=== PATIENT | male | born 1990 | race Caucasian/White ===

== ENCOUNTER 2019-02-18 01:58 | Observation (INO) ==
[2019-02-18] MEDS ORDERED: Ketorolac 15 MG/ML VIAL IVP ONE (02:33)
[2019-02-18] MEDS ORDERED: Ondansetron 4 MG/2 ML VIAL IVP ONE ×3 (02:33→16:29)
[2019-02-18] MEDS ORDERED: 0.9 % Sodium Chloride 1,000 ML IVC ONE ×3 (02:33→08:17)
[2019-02-18 03:04] LABS: Basophils # 0.1 K/mcL (0.0-0.2); Basophils % 0.3 %; Eosinophils % 0.1 %; Hematocrit 41.6 % (37.5-50.1); Immature Granulocytes % 0.6 % (0-4); Lymphocytes # 1.6 K/mcL (0.6-4.6); Lymphocytes % 10.4 %; Mean Corpuscular HGB Conc 33.7 g/dL (31.6-35.5); Mean Corpuscular Hemoglobin 30.4 pg (28.0-33.3); Mean Corpuscular Volume 90.4 fL (83.0-100.0); Mean Platelet Volume 11.1 fL (9.4-12.4); Monocytes # 0.7 K/mcL (0.0-1.3); Monocytes % 4.2 %; Neutrophils # 13.2 K/mcL (1.6-8.9); Platelet Count 290 K/mcL (140-400); Red Cell Distribution Width 12.2 % (11.5-14.5); Segmented Neutrophils % 84.4 %; White Blood Count 15.6 K/mcL (4.3-11.1)
[2019-02-18 03:18] LABS: Alanine Aminotransferase 78 Units/L (7-52); Albumin 4.9 g/dL (3.5-5.7); Albumin/Globulin Ratio 1.7 (1.1-2.2); Alkaline Phosphatase 62 Units/L (34-104); Aspartate Amino Transferase 34 Units/L (13-39); Bilirubin,Total 0.7 mg/dL (0.3-1.0); Blood Urea Nitrogen 14 mg/dL (6-20); Calcium 10.1 mg/dL (8.6-10.3); Carbon Dioxide 21 mEq/L (23-29); Chloride 105 mEq/L (98-107); Globulin 2.9 g/dL (2.4-3.5); Glucose 137 mg/dL (70-105); Lipase 5 Units/L (11-82); Osmolality,Calculated 289 (280-300); Potassium 4.3 mEq/L (3.5-5.1); Sodium 138 mEq/L (136-145); Total Protein 7.8 g/dL (6.4-8.9)
[2019-02-18 04:04] LABS: BUN/Creatinine Ratio 13 (6-26); eGFR For African Americans > 60 (> 60); eGFR For Non-African Americans > 60 (> 60)
[2019-02-18 04:09] LABS: Bilirubin,Urine Small (Negative); Blood,Urine Negative (Negative); Clarity,Urine Turbid (Clear); Color,Urine Dark Yellow (Yellow); Glucose,Urine (UA) Normal (Normal); Ketones,Urine Negative (Negative); Leukocyte Esterase,Urine Negative (Negative); Nitrite,Urine Negative (Negative); Protein,Urine 30 mg/dL (Neg-Trace); Specific Gravity,Urine > 1.030 (1.010-1.025); Urobilinogen,Urine Normal (Normal)
[2019-02-18 04:20] LABS: Bacteria,Urine Many per hpf (None-Few); Mucus,Urine Few per lpf (Few); Squamous Epithelial Cell,Urine Few per lpf (None-Few); WBC,Urine 0-3 per hpf (0-3)
[2019-02-18] MEDS ORDERED: Morphine Sulfate 2 MG/ML SYRINGE IVP ONE (04:20)
[2019-02-18] MEDS ORDERED: Ondansetron 4 MG/2 ML VIAL IVP PRN ×2 (07:21→17:41)
[2019-02-18] MEDS ORDERED: MOM Conc 10 ML UD.LIQ PO PRN ×2 (07:21→17:41)
[2019-02-18] MEDS ORDERED: Naloxone 0.4 MG/ML INJ IVP PRN ×2 (07:21→17:41)
[2019-02-18] MEDS ORDERED: Mag Hydrox/Al Hydrox/Simeth 30 ML UDC PO PRN ×2 (07:21→17:41)
[2019-02-18] MEDS ORDERED: Acetaminophen 325 MG TABLET PO PRN ×2 (07:21→17:41)
[2019-02-18] MEDS: 0.9 % Sodium Chloride 1,000 ML IVC SCH ×2 (10:27→14:49)
[2019-02-18] MEDS ORDERED: Ketorolac 30 MG/ML VIAL IVP SCH ×2 (12:00→18:00)
[2019-02-18] MEDS ORDERED: Lidocaine -MPF 2% 2 ML VIAL ONE (16:16)
[2019-02-18] MEDS ORDERED: *HR* Midazolam HCl 2 MG/2 ML VIAL ONE (16:16)
[2019-02-18] MEDS ORDERED: *HR* FentaNYL (PF) 100 MCG/2 ML VIAL ONE (16:16)
[2019-02-18] MEDS ORDERED: *HR* Propofol 200 MG/20 ML VIAL IVP ONE ×2 (16:16)
[2019-02-18] MEDS ORDERED: Ondansetron 4 MG/2 ML VIAL ONE (16:19)
[2019-02-18] MEDS ORDERED: Dexamethasone 4 MG/ML VIAL ONE (16:19)
[2019-02-18] MEDS ORDERED: *HR* Promethazine 25 MG/ML VIAL IVP PRN (16:29)
[2019-02-18] MEDS ORDERED: Morphine Sulfate 2 MG/ML SYRINGE IVP PRN (16:29)
[2019-02-18] MEDS ORDERED: *HR* OxyCODONE Immed Rel 5 MG TABLET PO PRN (16:29)
[2019-02-18] MEDS ORDERED: Ketorolac 30 MG/ML VIAL ONE (16:42)
[2019-02-18] MEDS ORDERED: 0.9 % Sodium Chloride 1,000 ML IVC SCH (17:41)
[2019-02-18 21:17] VITALS: BP 149/82
[2019-02-23 09:45] LABS: Calculi Mass 6 mg
== END 2019-02-18 21:25 | disposition home or self-care (01) ==
LOC: EDBD → CDU 01:58 → EMEROOARM 01:58 → SUATTDRO 05:09 → CDU 07:38
PROVIDERS: ADMIT Internal Medicine; ATTEND Internal Medicine